=== PATIENT | male | born 1990 | race Caucasian/White ===

== ENCOUNTER 2016-10-20 04:57 | Emergency (ER) | payer MEDICARE ==
[2016-10-20 05:42] LABS: BASOPHILS 0.4 % (0-2); EOSINOPHILS 0.9 % (0-7); HEMATOCRIT 45.2 % (42.0-54.0); HEMOGLOBIN 16.3 g/dL (13.5-17.5); IMMATURE GRANULOCYTES 0.1 % (0-5); LYMPHOCYTES 38.5 % (15-50); MCH 31.1 pg (26.0-34.0); MCHC 36.1 g/dL (31.0-37.0); MCV 86.3 fL (80.0-100.0); MEAN PLATELET VOLUME 10.5 fL (7.4-10.4); MONOCYTES 11.8 % (2-11); NEUTROPHILS 48.3 % (40-80); RBC 5.24 10x6/uL (4.20-6.10)
[2016-10-20 05:43] LABS: PLATELET COUNT 269 10x3/uL (130-400)
[2016-10-20 06:10] LABS: ALBUMIN 4.6 g/dL (3.4-5.0); ANION GAP 15.6 mmol/L (8-16); CALCIUM 9.4 mg/dL (8.5-10.1); CARBON DIOXIDE 23.8 mmol/L (21.0-32.0); CREATININE - SERUM 1.3 mg/dL (0.6-1.3); POTASSIUM - SERUM 3.4 mmol/L (3.5-5.1); PROTEIN - SERUM 7.8 g/dL (6.4-8.2)
== END 2016-10-20 07:05 | disposition home or self-care (01) ==
LOC: D.ER 04:57
PROVIDERS: Emergency Medicine
DX: R30.0 Dysuria (principal); B27.00 Gammaherpesviral mononucleosis without complication; I10 Essential (primary) hypertension

== ENCOUNTER 2017-09-23 16:19 | Day surgery (SDC) | payer MEDICARE ==
--- NOTE | ~2017-09-23 | OP ---
PATIENT NAME: HAMIDA IRWIN MEDICAL RECORD: [id number] :89 LOCATION:D. D.2139 ADMISSION DATE:09/23/17 SURGEON: JITENDRA LEAVITT MD DATE OF OPERATION: 09/23/2017 SURGEON: Jitendra Leavitt MD ANESTHESIA: General anesthesia by Dejah Null CRNA. DIAGNOSIS: Left proximal ureteral 8-mm stone. PROCEDURES: Cystoscopy, left retrograde pyelogram, left ureteral stent insertion 6-Italian x 26 cm with string attached. FINDINGS: Radiodense 8 mm left ureteral stone at the L2 transverse process level. Single ureteral orifices bilaterally. No bladder tumors. BLOOD LOSS: None. CLINICAL HISTORY: This is a 26-year-old male, who has a prior history of kidney stones. He was treated in the past with ESWL by Dr. Clifford. 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 He had a 12-lead EKG today, which was completely normal. A CT scan performed in the Emergency Room for acute left flank pain, which had an onset at 2:00 p.m. today showed an obstructive 8 mm proximal ureteral stone on the left side. There are no other renal stone visualized on either side. Because of the ongoing pain, nausea, and vomiting, we will be inserting a left ureteral stent. As an outpatient, he can have lithotripsy to break up the stone. He is not allergic to any medications. He was given Ancef 2 grams IV consulting psychiatrist to the OR. DESCRIPTION OF PROCEDURE: The patient was given a general anesthetic and he was placed in the dorsal lithotomy position. He was then prepped and draped. Lidocaine jelly was inserted into the urethra. Fluoroscopy was performed and we noted a radiodensity at the left L2 transverse process which may be the stone. In order to confirm this, we performed a retrograde pyelogram. Going with the cystoscope 21-Italian with 30-degree lens, we saw a normal penile urethra and nonobstructive prostatic urethra. Going into the bladder, there are single ureteral orifices on each side. No bladder tumors were seen. The left ureteral orifice was intubated with a 5-Italian open-ended ureteral catheter. Diluted contrast was injected for the retrograde pyelogram. This showed that the lechuga-shaped radiodensity at the L2 transverse process was indeed a renal stone. We then inserted a Sensor wire up the lumen of the ureteral catheter in order to try to insert a stent over the wire. The wire ran up against the stone and could not pass. I therefore used the open-ended ureteral catheter to push past the stone and then the wire was able to advance into the renal pelvis. Once the wire was in position, the open-ended ureteral catheter was removed, leaving the wire in place. Over the wire, we inserted the 6-Italian x 26 cm left ureteral stent. Once the stent was in correct position, we slowly withdrew the wire to allow the proximal end to coil in the renal pelvis. The distal end was then pushed into the bladder using a pusher. The wire was removed entirely. The bladder was then emptied through the scope sheath and then the scope was removed. The string on the distal end of stent is maintained. It hangs out of the penile urethra. It was tied to itself in a knot and cut shorter. The patient was then awakened and brought to the recovery room. He will be going home with a prescription for Matthews 5/325 times 30 tablets with no refills and OPERATIVE REPORT [id number] HAMIDA IRWIN tamsulosin 0.4 mg p.o. q.h.s. times 30 with no refills. He will be in contact with my office next week to arrange left ESWL. TRANSINT:[id number] Voice Confirmation ID: [id number] DOCUMENT ID: [id number] JITENDRA LEAVITT MD at 1155 CC: [id number] DICTATION DATE: 09/23/172020 SERVICE CENTER MANAGER: 09/23/17 [id number] DIS IN 09/23/17 [facility] [address] [place] [address]
[2017-09-23 17:26] LABS: BASOPHILS 0.3 % (0-2); EOSINOPHILS 0.6 % (0-7); HEMATOCRIT 45.4 % (42.0-54.0); IMMATURE GRANULOCYTES 0.3 % (0-5); LYMPHOCYTES 15.7 % (15-50); MCH 31.6 pg (26.0-34.0); MCHC 35.2 g/dL (31.0-37.0); MCV 89.5 fL (80.0-100.0); MONOCYTES 9.9 % (2-11); NEUTROPHILS 73.2 % (40-80); PLATELET COUNT 227 10x3/uL (130-400); RBC 5.07 10x6/uL (4.20-6.10); RDW 12.2 % (11.5-14.5); WBC 9.5 10x3/uL (4.8-10.8)
[2017-09-23 17:43] LABS: ALBUMIN 4.2 g/dL (3.4-5.0); ALKALINE PHOSPHATASE 68 U/L (46-116); ALT (SGPT) 32 U/L (10-68); CALC OSMOLALITY 283 mosm/kg (275-300); CALCIUM 9.2 mg/dL (8.5-10.1); CARBON DIOXIDE 27.9 mmol/L (21.0-32.0); CHLORIDE - SERUM 108 mmol/L (98-107); CREATININE - SERUM 1.2 mg/dL (0.6-1.3); GLUCOSE 124 mg/dL (74-106); POTASSIUM - SERUM 3.9 mmol/L (3.5-5.1); PROTEIN - SERUM 7.6 g/dL (6.4-8.2); SODIUM 142 mmol/L (136-145); UREA NITROGEN 12 mg/dL (7-18); eGFR NON AFRICAN AMERICAN 77 mL/min (90-120)
[2017-09-23 18:32] LABS: APPEARANCE CLEAR (CLEAR); BILIRUBIN NEGATIVE (NEGATIVE); COLOR YELLOW (YELLOW); GLUCOSE NEGATIVE (NEGATIVE); KETONE NEGATIVE (NEGATIVE); NITRITE NEGATIVE (NEGATIVE); PROTEIN NEGATIVE (NEGATIVE); UROBILINOGEN NORMAL (NORMAL)
[2017-09-23 18:33] LABS: RED CELLS - URINE 25-50 /hpf (0-5); WHITE CELLS - URINE 0-5 /hpf (0-5)
[2017-09-23 18:34] LABS: BACTERIA FEW /hpf (NONE SEEN); CALCIUM OXALATE CRYSTALS 0-5 /hpf (NONE SEEN)
[2017-09-23 18:35] LABS: MUCUS <1+ /lpf (NONE SEEN)
[2017-09-23 19:12] LABS: APTT 24.5 SECONDS (22.8-39.4); INR 1.01 (0.85-1.17); PROTIME 12.9 SECONDS (11.6-15.0)
[2017-09-23 21:06] VITALS: BP 155/97
== END 2017-09-23 22:44 | disposition home or self-care (01) ==
LOC: OBSVTIME → D.ER 16:19 → EDSTATUS 16:22 → D.EDHOLD 18:41 → D.ER 18:41 → OBSVTIME 18:41 → D.M2 20:12 → D.EDHOLD 20:12 → D.M2 22:44 → D.ER 22:44 → D.M2 22:44
PROVIDERS: Emergency Medicine; Physician Assistant Medical
DX: N20.1 Calculus of ureter (principal); F17.200 Nicotine dependence, unspecified, uncomplicated; I10 Essential (primary) hypertension; K21.9 Gastro-esophageal reflux disease without esophagitis; E66.9 Obesity, unspecified; Z01.812 Encounter for preprocedural laboratory examination

== ENCOUNTER 2020-09-08 08:52 | Emergency (ER) | payer MEDICARE ==
[~2020-09-08] VITALS: Ht 182.9 cm; Wt 135.0 kg
[2020-09-08 08:56] VITALS: Ht 182.9 cm; Wt 135.0 kg
[2020-09-08] MEDS ORDERED: VOLTAREN25 MG PO (08:57)
[2020-09-08] MEDS ORDERED: BENTYL10 MG PO (08:58)
[2020-09-08] MEDS ORDERED: GABAPENTIN100 MG PO (08:58)
[2020-09-08 09:55] VITALS: BP 145/84
== END 2020-09-08 10:11 | disposition home or self-care (01) ==
LOC: D.ER 08:52
DX: M25.561 Pain in right knee (principal); M25.562 Pain in left knee